=== PATIENT | male | born 1955 | race Caucasian/White ===

== ENCOUNTER 2018-07-24 10:41 | Emergency (ER) | payer OTHER ==
--- NOTE | 2018-07-24 11:32 | EDPHY ---
H & P Stated Complaint: Injury to right ring finger. Time Seen by Provider: 07/24/18 11:25 HPI/ROS: HPI: This is a 62-year-old male who presents with Chief Complaint: Injury to right ring finger. Location: Right ring finger Quality: Injury Duration: 1 hr prior to arrival Signs and Symptoms: No bleeding, no radiation, no numbness, no weakness, no tingling, no incontinence, + decreased range of motion, no swelling, + pain, no fever Timing: Acute Severity: Mild Context: Patient is right-hand dominant, presents with accidentally injuring his right ring finger at the middle joint. Patient reports he slipped on the ice and put his hand out and fell directly onto his right ring finger. He reports that it is deformed any thinks is "out of place." He reports decreased range of motion and mild, constant, radiating pain down into his hand. Denies LOC/head injury/neck pain/dizziness/nausea/vomiting/amnesia. Not on any blood thinners. Modifying Factors: None Comment: ROS: A comprehensive 10 system review of systems is otherwise negative aside from elements mentioned in the history of present illness. MEDICAL/SURGICAL/SOCIAL HISTORY: Medical history: Generally healthy. Does not take any regular medications. Surgical history: Denies Social history: Retired. Nonsmoker. CONSTITUTIONAL: Polite and cooperative elderly white male, awake and alert, no obvious distress HEENT: Atraumatic and normocephalic. NECK: supple, no midline tenderness, flexion 45 degrees, extension 45 degrees, right and left lateral flexion 45 degrees. No meningismus. Cardiovascular: Normal S1/S2, regular rate, regular rhythm, without murmur rub or gallop. PULMONARY/CHEST: Symmetrical and nontender. Clear to auscultation bilaterally. Good air movement. No accessory muscle usage. ABDOMEN: Soft, nondistended, nontender. EXTREMITIES: 2/2 pulses, strength 5/5, right ring finger shows deviation at the PIP joint; DIP/PIP/MCP flexion/extension intact with good light touch sensation. no deformities, no clubbing, no cyanosis or edema. NEUROLOGICAL: no focal neuro deficits. GCS 15. Light touch sensation intact. SKIN: Warm and dry, no erythema. no rash. Good capillary refill. Source: Patient Exam Limitations: No limitations - Personal History Current Tetanus Diphtheria and Acellular Pertussis (TDAP): Yes - Medical/Surgical History Hx Asthma: No Hx Chronic Respiratory Disease: No Hx Diabetes: No Hx Cardiac Disease: No Hx Renal Disease: No Hx Cirrhosis: No Hx Alcoholism: No Hx HIV/AIDS: No Hx Splenectomy or Spleen Trauma: No Other PMH: HTN. Gerd. Mixed connective tissue disease. - Social History Smoking Status: Former smoker Constitutional: Initial Vital Signs Temperature (C) 36.2 C 07/24/18 10:46 Heart Rate 86 07/24/18 10:46 Respiratory Rate 16 07/24/18 10:46 Blood Pressure 118/82 H 07/24/18 10:46 O2 Sat (%) 97 07/24/18 10:46 O2 Delivery Mode Room Air Allergies/Adverse Reactions: No Known Allergies Allergy (Unverified 07/24/18 10:50) Home Medications: Medication Instructions Recorded Amlodipine Besylate 07/24/18 Lisinopril 07/24/18 Methotrexate 07/24/18 Prednisone 07/24/18 Medical Decision Making - Diagnostics Imaging Results: Imaging Impressions Finger X-Ray 07/24/18 11:32 Impression: Fracture dislocation fourth PIP joint. 2. Right Fourth Finger 3 views, 11:46 AM. History: Post reduction Comparison: Prereduction at 11:35 AM Findings: The fourth PIP joint is relocated. The small avulsion fragment off of the lateral head of the proximal phalanx is reduced and in anatomic position. Impression: Successful reduction of the fourth PIP joint. Finger X-Ray 07/24/18 11:46 Impression: Fracture dislocation fourth PIP joint. 2. Right Fourth Finger 3 views, 11:46 AM. History: Post reduction Comparison: Prereduction at 11:35 AM Findings: The fourth PIP joint is relocated. The small avulsion fragment off of the lateral head of the proximal phalanx is reduced and in anatomic position. Impression: Successful reduction of the fourth PIP joint. Procedures: Procedure: Dislocation reduction. The dislocation of the right PIP joint was reduced using counter traction technique without complications. Post reduction the patient's neurovascular exam is normal. Post reduction x-ray demonstrates reduction of the joint to the anatomic position. The procedure was performed by myself. Procedure: Splint placement. A right finger splint was applied by the Emergency Room anesthesia technician. After application of the splint I returned and re-examined the patient. The splint was adequately immobilizing the joint and distal to the splint the patient's circulation and sensation was intact. ED Course/Re-evaluation: Vital signs reviewed and stable upon arrival. Fall as mechanical in nature. No signs of CVA, syncope, ACS. Based on nexus protocol head CT imaging not indicated. Right hand x-ray shows dislocation of the right ring finger at the PIP joint. Reduced without difficulty x1 attempt. Placed in finger splint with orthopedic/hand follow-up. No signs of neurovascular compromise/tenting of skin/compartment syndrome/ extremities and joints examined above and below area of concern and are neurovascularly intact. This patient was seen under the supervision of my secondary supervising physician. I evaluated care for this patient with attending. Discussed this patient with Dr. Shaw. Differential Diagnosis: Differential diagnosis includes but is not limited to fracture, dislocation. Departure - Departure Disposition: Home, Routine, Self-Care Clinical Impression: Closed dislocation of right ring finger Condition: Good Instructions: Splint Care (ED), Finger Dislocation (ED) Additional Instructions: Wear the splint and keep dry until seen by Orthopedics. Take Tylenol 650 mg every 4 hours and/or Ibuprofen 600 mg every 8 hours with food as needed for pain. Apply ice for 30 minutes at a time; 2-3 times per day for the next 1-2 days. Follow up with Orthopedics in 7-10 days at which time they will evaluate and recommend with you if conservative management versus further imaging is indicated. Return to the ER immediately if you experience new or worsening pain, discoloration, numbness, tingling, or any other symptoms that concern you. Referrals: TAHMINA SCHULTE [Primary Care Provider] - As per Instructions Maylin Valdez MD [Medical Doctor] - As per Instructions
[2018-07-24 12:10] VITALS: BP 121/67
== END 2018-07-24 12:13 | disposition home or self-care (01) ==
PROC: 0RSWXZZ Reposition Right Finger Phalangeal Joint, External Approach (ICD-10-PCS; principal; 2018-07-24)
DX: S63.284A Dislocation of proximal interphalangeal joint of right ring finger, initial encounter (principal); W00.0XXA Fall on same level due to ice and snow, initial encounter; Y92.9 Unspecified place or not applicable; Y99.9 Unspecified external cause status; Y93.9 Activity, unspecified